=== PATIENT | female | born 1960 | race Caucasian/White ===

== ENCOUNTER → 2018-06-10 | Outpatient (CLI) | payer BC ==
[~2018-06-10] MED LIST: ACHYD1T PO; CHLS4PK PO; DCS100C PO; ESTR1TAB24 PO; IBP800T PO; YAZ PO
--- NOTE | 2018-06-10 17:12 | Diagnostic Imaging Report ---
INDICATION: Low back pain EXAM: Lumbar spine FINDINGS: AP and lateral views of the lumbar spine show normal vertebral body height and alignment. Disc spaces are normal. IMPRESSION: Negative lumbar spine. Dictated by: Dictated on workstation # [id number]
== END ==
LOC: RAD FS 16:37
PROVIDERS: ATTEND Chiropractor
DX: M54.16 Radiculopathy, lumbar region (principal)
CPT/HCPCS: 72100

== ENCOUNTER → 2018-09-18 | Outpatient (CLI) | payer BC ==
[~2018-09-18] MED LIST changes: +BARIUM SUSPENSION 105% (LIQUID POLIBAR PLUS) 240 ML/DOSE PO ONE; +BARIUM SUSPENSION 60% (LIQUID EZ PAQUE) 240 ML DOSE PO ONE
--- NOTE | 2018-09-18 13:03 | Diagnostic Imaging Report ---
Indication: Dysphagia. Patient ingested effervescent crystals as well as thin and thick barium and imaging of the esophagus was performed. Preliminary radiograph of the chest shows a calcified granuloma in the right base. Otherwise lungs are clear. Postingestion images demonstrate the esophagus to have a smooth contour. No mass or stricture is identified. There is a small sliding-type hiatal hernia. No gastroesophageal reflux was demonstrated. Impression: Hiatal hernia. No other significant abnormality is seen. Dictated by: Dictated on workstation # [id number]
== END ==
LOC: RAD 10:26
PROVIDERS: ATTEND Otolaryngology Otolaryngology/Facial Plastic Surgery
DX: K44.9 Diaphragmatic hernia without obstruction or gangrene (principal); R13.10 Dysphagia, unspecified
CPT/HCPCS: 74220

== ENCOUNTER 2021-04-29 15:09 | Emergency (ER) | payer BC ==
[~2021-04-29] VITALS: Ht 165.1 cm; Wt 87.4 kg
[~2021-04-29 15:09] MED LIST changes: -BARIUM SUSPENSION 105% (LIQUID POLIBAR PLUS) 240 ML/DOSE PO ONE; -BARIUM SUSPENSION 60% (LIQUID EZ PAQUE) 240 ML DOSE PO ONE
[2021-04-29] MEDS ORDERED: OMEP20CA18 PO (15:33)
[2021-04-29] MEDS ORDERED: LISI1TAB48 PO (15:33)
[2021-04-29 15:42] LABS: HEMATOCRIT 34 % (35-52); HEMOGLOBIN 11.3 g/dL (11.5-16.0); LYMPHOCYTES % (AUTO) 47 % (12-44); MEAN CORPUSCULAR HEMOGLOBIN 28 pg (25-34); MEAN CORPUSCULAR HGB CONC 33 g/dL (32-36); MEAN CORPUSCULAR VOLUME 85 fL (80-99); MEAN PLATELET VOLUME 10.1 fL (9.0-12.2); NEUTROPHILS % (AUTO) 43 % (42-75); PLATELET COUNT 205 10^3/uL (130-400); WHITE BLOOD COUNT 8.7 10^3/uL (4.3-11.0)
[2021-04-29 15:43] LABS: BASOPHILS % (AUTO) 1 % (0-10); EOSINOPHILS # (AUTO) 0.3 10^3/uL (0.0-0.3); EOSINOPHILS % (AUTO) 3 % (0-10); LYMPHOCYTES # (AUTO) 4.1 X 10^3 (1.0-4.0); MONOCYTES # (AUTO) 0.5 X 10^3 (0.0-1.0); MONOCYTES % (AUTO) 6 % (0-12); NEUTROPHILS # (AUTO) 3.8 X 10^3 (1.8-7.8)
--- NOTE | 2021-04-29 16:02 | Diagnostic Imaging Report ---
INDICATION: Chest pain, left 3rd rib pain. TECHNIQUE: Single view chest 3:46 PM. CORRELATION STUDY: None FINDINGS: The heart size, mediastinal configuration and pulmonary vascularity are within normal limits. The lungs are clear with no consolidating infiltrate. Calcified granulomata right lung base. There is no significant effusion or pneumothorax. Visualized ribs demonstrate no acute displaced fracture. IMPRESSION: 1. Negative for acute abnormality of the chest. Dictated by: Dictated on workstation # [id number]
--- NOTE | 2021-04-29 16:15 | ED General ---
General Chief Complaint: Chest Pain Stated Complaint: CP Nursing Triage Note: Patient ambulatory to ED reporting let sided chest pain since last evening up into axilla. Pain started after scraping ice off windshield with right arm. History of Present Illness Date Seen by Provider: Apr 29, 2021 Time Seen by Provider: 15:18 Initial Comments 60-year-old female is here with complaints of left-sided pain on her chest wall on the lateral side of her left breast, and denies radiation of pain. Patient developed pain after cleaning ice off her car windshield. Patient noticed the pain when she was picking up her grandchildren today. Reports that pain is exacerbated by movement and bending down and picking up her grandchildren. There is no pain at rest. Denies fever, shortness of breath, chest pain, abdominal pain, nausea and vomiting, falls, injuries. Allergies and Home Medications Allergies Coded Allergies: No Known Drug Allergies (Unverified , 06/25/12) Patient Home Medication List Home Medication List Reviewed: Yes Cholestyramine/Sucrose (Questran Packet) 4 G/Pkt Packet, 1 PKT PO DAILY, (Reported) Entered as Reported by: ISABELLE GROVES on 06/25/12 1138 Last Action: Reviewed Estradiol (Estradiol) 1 Mg Tablet, 1 MG PO DAILY, (Reported) Entered as Reported by: BIA HUFF on 07/18/12 105 Last Action: Reviewed Lisinopril/Hydrochlorothiazide (Lisinopril-Hctz 20-25 mg Tab) 1 Each Tablet, 1 TAB PO DAILY, (Reported) Entered as Reported by: ABELARDO MUNOZ on 04/29/211532 Last Action: New Order Omeprazole (Omeprazole) 20 Mg Capsule.dr, 20 MG PO DAILY, (Reported) Entered as Reported by: ABELARDO MUNOZ on 04/29/211532 Last Action: New Order Discontinued Medications Docusate Sodium (Colace) 100 Mg Capsule, 100 MG PO BID, (Reported) Discontinued Reason: Referral/FU Appt-Addtl Entered as Reported by: BIA HUFF on 07/18/12 1050 Last Action: Discontinued Hydrocodone Bit/Acetaminophen (Lorcet Plus 10/325 Mg) 1 Tab Tablet, 1-2 TAB PO q 3hr PRN, (Reported) Discontinued Reason: Referral/FU Appt-Addtl Entered as Reported by: BIA HUFF on 07/18/121049 Last Action: Discontinued Ibuprofen (Motrin) 800 Mg Tab, 800 MG PO Q6HR PRN, (Reported) Discontinued Reason: Referral/FU Appt-Addtl Entered as Reported by: BIA Barrett DARIA on 07/18/121049 Last Action: Discontinued Review of Systems Review of Systems Constitutional: no symptoms reported EENTM: no symptoms reported Respiratory: no symptoms reported Cardiovascular: no symptoms reported Gastrointestinal: no symptoms reported Genitourinary: no symptoms reported Musculoskeletal: other (left breast/ chest wall pain) Skin: no symptoms reported Psychiatric/Neurological: No Symptoms Reported Hematologic/Lymphatic: No Symptoms Reported Immunological/Allergic: no symptoms reported Past Yzngefo-Tjwlyt-Efxnks Hx Patient Social History Tobacco Use?: No Smoking Status: Never a Smoker Smokeless Tobacco Frequency: Never a User Use of E-Cig and/or Vaping dev: No Use of E-Cig and/or Vaping Jorge: Never a User Substance use?: No Alcohol Use?: No Pt feels they are or have been: No Immunizations Up To Date Influenza Vaccine Up-to-Date: Yes; Up-to-Date First/Initial COVID19 Vaccinat: April 2020 Second COVID19 Vaccination Hai: May 2020 COVID19 Vaccine [employer]: Moderna? Past Medical History Surgery/Hospitalization HX: HTN, GERD Reproductive Disorders: Yes (PELVIC MASS, MENORRHAGIA) Physical Exam Vital Signs Vital Signs - First Documented 04/29/21 15:11 Temp 36.8 Pulse 73 Resp 16 B/P (MAP) 113/65 (81) Pulse Ox 98 O2 Delivery Room Air Capillary Refill : Less Than 3 Seconds Height, Weight, BMI Height: '" Weight: lbs. oz. kg; 32.00 BMI Method: General Appearance: No Apparent Distress HEENT: PERRL/EOMI Neck: Full Range of Motion, Normal Inspection, Non Tender, Supple Respiratory: Lungs Clear, Normal Breath Sounds, No Respiratory Distress, Other (pain felt over the ) Cardiovascular: Regular Rate, Rhythm, No Edema, Normal Peripheral Pulses Gastrointestinal: Normal Bowel Sounds, Non Tender, Soft Extremity: Normal Range of Motion Neurologic/Psychiatric: Alert, Oriented x3, No Motor/Sensory Deficits Comments MUSCULOSKELETAL: left 3rd rib point tenderness along the anterior axillary line on the breast. No bruising seen. Left shoulder has full ROM. Progress/Results/Core Measures Suspected Sepsis SIRS Temperature: Pulse: 73 Respiratory Rate: 16 Laboratory Tests 04/29/21 15:20: White Blood Count 8.7 Blood Pressure 113 /65 Mean: 81 Laboratory Tests 04/29/21 15:20: Platelet Count 205 Results/Orders Lab Results Laboratory Tests Test 04/29/21 15:20 Range/Units White Blood Count 8.7 4.3-11.0 10^3/uL Red Blood Count 4.02 3.80-5.11 10^6/uL Hemoglobin 11.3 L 11.5-16.0 g/dL Hematocrit 34 L 35-52 % Mean Corpuscular Volume 85 80-99 fL Mean Corpuscular Hemoglobin 28 25-34 pg Mean Corpuscular Hemoglobin Concent 33 32-36 g/dL Red Cell Distribution Width 14.1 10.0-14.5 % Platelet Count 205 130-400 10^3/uL Mean Platelet Volume 10.1 9.0-12.2 fL Immature Granulocyte % (Auto) 0 % Neutrophils (%) (Auto) 43 42-75 % Lymphocytes (%) (Auto) 47 H 12-44 % Monocytes (%) (Auto) 6 0-12 % Eosinophils (%) (Auto) 3 0-10 % Basophils (%) (Auto) 1 0-10 % Neutrophils # (Auto) 3.8 1.8-7.8 X 10^3 Lymphocytes # (Auto) 4.1 H 1.0-4.0 X 10^3 Monocytes # (Auto) 0.5 0.0-1.0 X 10^3 Eosinophils # (Auto) 0.3 0.0-0.3 10^3/uL Basophils # (Auto) 0.0 0.0-0.1 10^3/uL Immature Granulocyte # (Auto) 0.0 0.0-0.1 10^3/uL Troponin I < 0.30 <0.30 NG/ML My Orders Orders - MIGUEL PATRICK MD Cbc With Automated Diff (04/29/21 15:37) Troponin I Fs (04/29/21 15:37) Chest 1 View Ap/Pa Only (04/29/21 15:37) Ekg Tracing (04/29/21 15:50) Vital Signs/I&O 04/29/21 15:11 Temp 36.8 Pulse 73 Resp 16 B/P (MAP) 113/65 (81) Pulse Ox 98 O2 Delivery Room Air Capillary Refill : Less Than 3 Seconds Blood Pressure Mean: 81 Progress Note : Progress Note 1. MUSCULOSKELETAL STRAIN: - CXR: normal - Troponin and CBC normal - Advised OTC lidocaine patches and Ibuprofen - F/u with PCP -The patient was seen in the ED, and treated appropriately to presentation at a specific point in time. Patient is informed that there is a possibility that disease and illness can evolve and change in acuity rapidly or slowly after patient is discharged from the ER. Precautionary advice given to the patient for immediate return to ER if symptoms worsen or do not resolve, and to seek emergency care sooner rather than later. Pt also advised on the importance of PCP follow up and compliance with management and follow up plan. Pt verbally expressed understanding. Departure Impression Primary Impression: Musculoskeletal strain Disposition: 01 HOME, SELF-CARE Condition: Stable Departure-Patient Inst. Referrals: [facility] (PCP/Family) Primary Care Physician Add. Discharge Instructions: - Advised OTC lidocaine patches and Ibuprofen - F/u with PCP - Avoid heavy lifting -The patient was seen in the ED, and treated appropriately to presentation at a specific point in time. Patient is informed that there is a possibility that disease and illness can evolve and change in acuity rapidly or slowly after patient is discharged from the ER. Precautionary advice given to the patient for immediate return to ER if symptoms worsen or do not resolve, and to seek emergency care sooner rather than later. Pt also advised on the importance of PCP follow up and compliance with management and follow up plan. Pt verbally expressed understanding. All discharge instructions reviewed with patient and/or family. Voiced understanding. MIGUEL PATRICK MD Apr 29, 2021 16:15
[2021-04-29 16:50] VITALS: BP 110/70
== END 2021-04-29 16:50 | disposition home or self-care (01) ==
LOC: EDUNIT# 15:09 → ER FS 15:11
DX: S29.011A Strain of muscle and tendon of front wall of thorax, initial encounter (principal); X50.1XXA Overexertion from prolonged static or awkward postures, initial encounter
CPT/HCPCS: 36415; 71045; 84484; 85025; 93005; 93041